=== PATIENT | male | born 1950 ===

== ENCOUNTER 2019-10-19 16:21 | Outpatient (REF) | payer BC, MEDICARE, OTHER, SELFPAY ==
[2019-10-21 19:02] LABS: SARS-CoV-2 RNA Undetected (Undetected); SARS-CoV-2 Specimen Source Nasopharynx
== END 2019-10-19 16:41 ==
LOC: NCHCN 16:21
PROVIDERS: Visit Provider Nurse Practitioner Family
DX: Z11.59 Encounter for screening for other viral diseases (principal)
CPT/HCPCS: U0003